=== PATIENT | female | born 1965 | race Caucasian/White ===

== ENCOUNTER 2020-07-05 07:29 | Emergency (ER) | payer OTHER, SELFPAY ==
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
[2020-07-05 07:36] VITALS: BP 156/84; BP 167/100; PULSE 82; PULSE 84; RESP 16; TEMP 36.1; O2SAT 95; O2SAT 97; BMI 29.7
[2020-07-05] MEDS: Acetaminophen 325 MG TABLET 975 MG PO (08:55)
[2020-07-05 09:23] VITALS: BP 168/90; PULSE 69; RESP 16; TEMP 36.2; O2SAT 97
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
--- NOTE | 2020-07-05 09:31 | PC.NURSE ---
PT UPDATED RE: NEGATIVE XRAY RESULTS AT [facility]IP[facility]' REQUEST,
== END 2020-07-05 09:42 | disposition home or self-care (01) ==
PROVIDERS: Emergency Provider Emergency Medicine Emergency Medical Services; PCP Internal Medicine
DX: S46.912A Strain of unspecified muscle, fascia and tendon at shoulder and upper arm level, left arm, initial encounter (principal); S66.912A Strain of unspecified muscle, fascia and tendon at wrist and hand level, left hand, initial encounter; S39.012A Strain of muscle, fascia and tendon of lower back, initial encounter; M54.9 Dorsalgia, unspecified; M25.512 Pain in left shoulder; M25.511 Pain in right shoulder; V43.52XA Car driver injured in collision with other type car in traffic accident, initial encounter; Y93.9 Activity, unspecified; Y92.410 Unspecified street and highway as the place of occurrence of the external cause; Y99.9 Unspecified external cause status; Z79.899 Other long term (current) drug therapy
CPT/HCPCS: 72100; 73030; 73110; 73130; 99284

== ENCOUNTER → 2022-07-31 11:24 | Outpatient (BNVA) | payer SELFPAY | PROVIDERS: PCP Internal Medicine; Visit Provider Physician Assistant | DX: Z77.21 Contact with and (suspected) exposure to potentially hazardous body fluids (principal) | CPT/HCPCS: 99203 ==